=== PATIENT | female | born 1970 | race African-American/Black ===

== ENCOUNTER 2016-07-10 08:42 | Emergency (ER) | payer OTHER ==
[~2016-07-10] VITALS: Wt 74.0 kg
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
[2016-07-10] MEDS ORDERED: IBUP800T25 PO (09:56)
[2016-07-10] MEDS ORDERED: IBUPROFEN 800 MG TAB PO ONE (10:00)
[2016-07-10 10:14] VITALS: BP 143/65; PULSE 75; RESP 19; TEMP 98
== END 2016-07-10 10:14 | disposition home or self-care (01) ==
LOC: FTE 08:42
DX: M54.5 Low back pain (principal); I10 Essential (primary) hypertension
CPT/HCPCS: 99283